=== PATIENT | female | born 1975 | race Caucasian/White ===

== ENCOUNTER → 2018-05-26 | Outpatient (CLI) | payer SELFPAY ==
--- NOTE | 2018-05-26 18:47 | Diagnostic Imaging Report ---
INDICATION: Neck and upper back pain for several years. Headaches. FINDINGS: Three views of the cervical spine show normal height and alignment of the vertebral bodies. There is minimal narrowing and spondylosis at C5-C6. No spinal canal encroachment is seen. There is no fracture. IMPRESSION: There are minimal degenerative changes at C5-C6 with no acute abnormality seen. Dictated by: Dictated on workstation # [id number]
--- NOTE | 2018-05-26 18:56 | Diagnostic Imaging Report ---
INDICATION: Neck and upper back pain and tightness for two years. FINDINGS: Three views of the thoracic spine show normal height and alignment of the vertebral bodies. Disc spaces are well maintained. There is no spondylosis. There is no spinal canal encroachment. IMPRESSION: Normal thoracic spine. Dictated by: Dictated on workstation # [id number]
== END ==
LOC: RAD 18:10
PROVIDERS: ATTEND Physician Assistant
DX: M47.812 Spondylosis without myelopathy or radiculopathy, cervical region (principal); M54.6 Pain in thoracic spine
CPT/HCPCS: 72040; 72072

== ENCOUNTER → 2018-10-11 | Outpatient (CLI) | payer OTHER | LOC: RAD 08:11 | PROVIDERS: ATTEND Physician Assistant | DX: M54.2 Cervicalgia (principal); R51 Headache; Z53.8 Procedure and treatment not carried out for other reasons ==

== ENCOUNTER → 2019-12-02 | Outpatient (CLI) | payer OTHER ==
--- NOTE | 2019-12-02 13:35 | Diagnostic Imaging Report ---
PROCEDURE: MR imaging cervical spine without contrast. TECHNIQUE: Multiplanar, multisequence MR imaging of the cervical spine was performed without contrast. INDICATION: Headaches. Correlation is made with prior MRI of the cervical spine from 10/25/2018. There is some straightening of the normal cervical lordotic curvature. Alignment is normal. Vertebral body marrow signal remains within normal limits. There is some generalized cervical disc desiccation compatible with degenerative change. Cervical spinal cord again demonstrates normal signal intensity. Craniocervical junction is unremarkable. C2-C3: Central canal and neural foramina are widely patent. C3-C4: No significant central canal or neural foraminal narrowing is seen. C4-C5: Endplate osteophytes indent the ventral thecal sac but central canal and neural foramina are patent. C5-C6: Broad-based disc/osteophyte complex indents the ventral thecal sac. This does result in mild narrowing of the canal. Neural foramina appear patent. C6-C7: Central canal and neural foramina are patent. C7-T1: Central canal and neural foramina are patent. Paraspinous tissues are unremarkable. IMPRESSION: Mild cervical spondylosis, greatest at C5-C6 level where there is mild central canal narrowing. No significant neural foraminal stenosis is seen. Dictated by: Dictated on workstation # [id number]
== END ==
LOC: RAD 12:00
PROVIDERS: ATTEND Physician Assistant
DX: M47.812 Spondylosis without myelopathy or radiculopathy, cervical region (principal)
CPT/HCPCS: 72141

== ENCOUNTER → 2020-03-26 | Outpatient (CLI) | payer OTHER | LOC: LABNPT 08:37 | PROVIDERS: ATTEND Otolaryngology Otolaryngology/Facial Plastic Surgery | DX: G47.33 Obstructive sleep apnea (adult) (pediatric) (principal); Z20.828 Contact with and (suspected) exposure to other viral communicable diseases | CPT/HCPCS: 87635 ==

== ENCOUNTER → 2020-04-23 | Outpatient (CLI) | payer OTHER | LOC: LABNPT 06:03 | PROVIDERS: ATTEND Otolaryngology Otolaryngology/Facial Plastic Surgery | DX: G47.33 Obstructive sleep apnea (adult) (pediatric) (principal); Z20.828 Contact with and (suspected) exposure to other viral communicable diseases | CPT/HCPCS: 87635 ==

== ENCOUNTER 2020-04-25 20:09 | Outpatient (CLI) | payer OTHER | END 2020-04-26 06:25 | disposition home or self-care (01) | LOC: SLEEP 20:09 | PROVIDERS: ATTEND Nurse Practitioner | DX: G47.33 Obstructive sleep apnea (adult) (pediatric) (principal); G47.10 Hypersomnia, unspecified; G47.00 Insomnia, unspecified; Z20.828 Contact with and (suspected) exposure to other viral communicable diseases | CPT/HCPCS: 95810 ==

== ENCOUNTER 2020-05-14 15:17 | Emergency (ER) | payer OTHER ==
[~2020-05-14] VITALS: Ht 157.5 cm; Wt 88.9 kg
--- NOTE | 2020-05-14 15:54 | ED General ---
General Chief Complaint: General Problems/Pain Stated Complaint: DIFFICULTY SLEEPING Nursing Triage Note: PT AMB TO [facility] WITH COMPLAINT OF DIFFICULTY SLEEPING AND FEELING LIKE SHE IS GOING CRAZY. STATES WAS RECENTLY STARTED ON PROZAC FOR DEPRESSION. TODAY IS HER FIFTH DAY OF TAKING PROZAC. WAS SENT BY PCP TO BE EVALUATED AND "HAVE HER HEAD SCANNED" Nursing Sepsis Screen: No Definite Risk Source of Information: Patient Exam Limitations: No Limitations History of Present Illness Date Seen by Provider: May 14, 2020 Time Seen by Provider: 15:51 Initial Comments To ER at 3 PM in the afternoon with complaints of insomnia. 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 She has had a worsening of her chronic insomnia. She takes hydrocodone tablets for her chronic neck pain. Timing/Duration: 1-2 Days Severity: Moderate Associated Systoms: Denies Symptoms Allergies and Home Medications Allergies Coded Allergies: No Allergy Information Available (Unverified , 10/25/18) Patient Home Medication List Home Medication List Reviewed: Yes Review of Systems Review of Systems Constitutional: see HPI EENTM: see HPI Respiratory: no symptoms reported Cardiovascular: no symptoms reported Genitourinary: no symptoms reported Musculoskeletal: no symptoms reported Skin: no symptoms reported Psychiatric/Neurological: See HPI Hematologic/Lymphatic: No Symptoms Reported Immunological/Allergic: no symptoms reported Past Nimqfaw-Rusdor-Pyxedv Hx Patient Social History Alcohol Use: Denies Use Recreational Drug Use: No Smoking Status: Never a Smoker Recent Foreign Travel: No Contact w/Someone Who Travel: No Recent Infectious Disease Expo: No Immunizations Up To Date Tetanus Booster (TDap): Unknown PED Vaccines UTD: Yes Past Medical History Surgeries: Yes (SKIN REMOVAL) Eye Surgery, Gallbladder Respiratory: No Cardiac: Yes Hypertension Neurological: No Genitourinary: No Gastrointestinal: No Musculoskeletal: No HEENT: No Cancer: No Psychosocial: Yes Depression Integumentary: No Physical Exam Vital Signs Vital Signs - First Documented 05/14/20 15:35 Temp 36.1 Pulse 62 Resp 16 B/P (MAP) 132/81 (98) Pulse Ox 100 O2 Delivery Room Air Capillary Refill : Less Than 3 Seconds Height, Weight, BMI Height: '" Weight: lbs. oz. kg; 35.00 BMI Method: General Appearance: No Apparent Distress, WD/WN, Other (lethargic) Eyes: Bilateral Eye Normal Inspection, Bilateral Eye PERRL, Bilateral Eye EOMI HEENT: PERRL/EOMI, TMs Normal Neck: Full Range of Motion, Normal Inspection Respiratory: No Accessory Muscle Use, No Respiratory Distress Gastrointestinal: Non Tender, Soft Extremity: Normal Capillary Refill, Normal Inspection Neurologic/Psychiatric: Alert, Oriented x3 Skin: Normal Color, Warm/Dry Progress/Results/Core Measures Suspected Sepsis Recent Fever Within 48 Hours: No Infection Criteria Present: None New/Unexplained Altered Menta: No Sepsis Screen: No Definite Risk SIRS Temperature: Pulse: 62 Respiratory Rate: 16 Laboratory Tests 05/14/20 16:41: White Blood Count 6.1 Blood Pressure 132 /81 Mean: 98 Laboratory Tests 05/14/20 16:41: Platelet Count 248 Results/Orders Lab Results Laboratory Tests Test 05/14/20 16:41 Range/Units White Blood Count 6.1 4.3-11.0 10^3/uL Red Blood Count 3.39 L 3.80-5.11 10^6/uL Hemoglobin 8.9 L 11.5-16.0 g/dL Hematocrit 29 L 35-52 % Mean Corpuscular Volume 86 80-99 fL Mean Corpuscular Hemoglobin 26 25-34 pg Mean Corpuscular Hemoglobin Concent 31 L 32-36 g/dL Red Cell Distribution Width 13.1 10.0-14.5 % Platelet Count 248 130-400 10^3/uL Mean Platelet Volume 9.4 9.0-12.2 fL Immature Granulocyte % (Auto) 0 % Neutrophils (%) (Auto) 61 42-75 % Lymphocytes (%) (Auto) 27 12-44 % Monocytes (%) (Auto) 6 0-12 % Eosinophils (%) (Auto) 6 0-10 % Basophils (%) (Auto) 1 0-10 % Neutrophils # (Auto) 3.7 1.8-7.8 10^3/uL Lymphocytes # (Auto) 1.6 1.0-4.0 10^3/uL Monocytes # (Auto) 0.4 0.0-1.0 10^3/uL Eosinophils # (Auto) 0.4 H 0.0-0.3 10^3/uL Basophils # (Auto) 0.1 0.0-0.1 10^3/uL Immature Granulocyte # (Auto) 0.0 0.0-0.1 10^3/uL My Orders Orders - FREDERICK ABDULLAHI APRN Ct Head Wo (05/14/20 15:43) Cbc With Automated Diff (05/14/20 15:43) Comprehensive Metabolic Panel (05/14/20 15:43) Thyroid Stimulating Hormone (05/14/20 15:43) Free T4 (Free Thyroxine) (05/14/20 15:43) Hydroxyzine Cap/Tab (Vistaril) (05/14/20 16:00) Medications Given in ED Current Medications Medications Dose Ordered Sig/Ramesh Route Start Time Stop Time Status Last Admin Dose Admin Hydroxyzine Pamoate 25 mg ONCE ONCE PO 05/14/20 16:00 05/14/20 16:01 DC 05/14/20 17:03 25 MG Vital Signs/I&O 05/14/20 15:35 Temp 36.1 Pulse 62 Resp 16 B/P (MAP) 132/81 (98) Pulse Ox 100 O2 Delivery Room Air Capillary Refill : Less Than 3 Seconds Blood Pressure Mean: 98 Departure Impression Primary Impression: Insomnia Additional Impression: Medication side effect Disposition: HOME, SELF-CARE Condition: Stable Departure-Patient Inst. Decision time for Depature: 17:11 Referrals: MILLIE GUTIERREZ (PCP/Family) Primary Care Physician Patient Instructions: Insomnia, Side Effects From Medicines Add. Discharge Instructions: 1. A common side effect of Prozac is insomnia. I would stop this. In the meantime start the hydroxyzine and call MILLIE to see if she could recommend a different medication. All discharge instructions reviewed with patient and/or family. Voiced und erstanding. Scripts Hydroxyzine HCl (Hydroxyzine HCl) 25 Mg Tablet 25 MG PO HS PRN for INSOMNIA, #14 TAB Prov: FREDERICK ABDULLAHI APRN 05/14/20 Work/School Note: Work Release Form Date Seen in the Emergency Department: May 14, 2020 Return to Work: May 17, 2020 FREDERICK ABDULLAHI APRN May 14, 2020 15:54
[2020-05-14] MEDS ORDERED: hydrOXYzine (VISTARIL/ATARAX) 25 MG capsule/tablet PO ONE (16:00)
--- NOTE | 2020-05-14 16:32 | Diagnostic Imaging Report ---
PROCEDURE: CT head without contrast. TECHNIQUE: Multiple contiguous axial images were obtained through the brain without the use of intravenous contrast. Auto Exposure Controls were utilized during the CT exam to meet ALARA standards for radiation dose reduction. INDICATION: Altered mental status. Confusion and difficulty sleeping. COMPARISON: Brain MRI performed on 10/25/2018. FINDINGS: BRAIN: No parenchymal hemorrhage, midline shift, or mass effect. Hughes-white matter differentiation is adequately preserved, without evidence of acute territorial infarct. No white matter changes. Ventricles, sulci and basilar cisterns are normal. EXTRA-AXIAL SPACES: No subdural or epidural collections. ORBITS AND PARANASAL SINUSES: Visualized orbits and globes are intact. Visualized paranasal sinuses and mastoid air cells are clear. CALVARIUM AND SOFT TISSUES: The calvarium is intact. No fractures or suspicious bony lesions. The extracranial soft tissues are unremarkable. IMPRESSION: No acute intracranial pathology. Dictated by: Dictated on workstation # [id number]
[2020-05-14 16:49] LABS: BASOPHILS # (AUTO) 0.1 10^3/uL (0.0-0.1); BASOPHILS % (AUTO) 1 % (0-10); EOSINOPHILS # (AUTO) 0.4 10^3/uL (0.0-0.3); EOSINOPHILS % (AUTO) 6 % (0-10); HEMATOCRIT 29 % (35-52); HEMOGLOBIN 8.9 g/dL (11.5-16.0); LYMPHOCYTES # (AUTO) 1.6 10^3/uL (1.0-4.0); LYMPHOCYTES % (AUTO) 27 % (12-44); MEAN CORPUSCULAR HEMOGLOBIN 26 pg (25-34); MEAN CORPUSCULAR HGB CONC 31 g/dL (32-36); MEAN CORPUSCULAR VOLUME 86 fL (80-99); MEAN PLATELET VOLUME 9.4 fL (9.0-12.2); MONOCYTES # (AUTO) 0.4 10^3/uL (0.0-1.0); MONOCYTES % (AUTO) 6 % (0-12); NEUTROPHILS # (AUTO) 3.7 10^3/uL (1.8-7.8); NEUTROPHILS % (AUTO) 61 % (42-75); PLATELET COUNT 248 10^3/uL (130-400); WHITE BLOOD COUNT 6.1 10^3/uL (4.3-11.0)
[2020-05-14] MEDS ORDERED: HYDR-700 PO (17:13)
[2020-05-14 17:17] LABS: ALBUMIN 3.6 GM/DL (3.2-4.5); CHLORIDE 105 MMOL/L (98-107); POTASSIUM 3.1 MMOL/L (3.6-5.0); SODIUM 139 MMOL/L (135-145)
[2020-05-14 17:18] LABS: CALCIUM 8.2 MG/DL (8.5-10.1)
[2020-05-14 17:19] LABS: GLUCOSE 113 MG/DL (70-105); TOTAL PROTEIN 6.2 GM/DL (6.4-8.2)
[2020-05-14 17:21] LABS: BILIRUBIN,TOTAL 0.2 MG/DL (0.1-1.0); CARBON DIOXIDE 24 MMOL/L (21-32)
[2020-05-14 17:23] LABS: ALKALINE PHOSPHATASE 66 U/L (40-136); CREATININE SERUM 0.66 MG/DL (0.60-1.30); GFR ESTIMATED > 60
[2020-05-14 17:24] LABS: BUN/CREATININE RATIO 21
[2020-05-14 17:26] LABS: ALANINE AMINOTRANSFERASE 12 U/L (0-55)
[2020-05-14 17:47] LABS: FREE T4 (FREE THYROXINE) 0.85 NG/DL (0.70-1.48)
[2020-05-14 18:00] VITALS: BP 130/86
[2020-05-14] MEDS ORDERED: KCL 10 MEQ TAB (MICRO K) PO ONE (18:00)
== END 2020-05-14 18:00 | disposition home or self-care (01) ==
LOC: EDUNIT# 15:17 → ER 15:18
DX: G47.00 Insomnia, unspecified (principal); G89.29 Other chronic pain; T43.225A Adverse effect of selective serotonin reuptake inhibitors, initial encounter; M54.2 Cervicalgia; Z79.891 Long term (current) use of opiate analgesic
CPT/HCPCS: 36415; 70450; 80053; 84439; 84443; 85025; 99283